=== PATIENT | female | born 1940 | race Caucasian/White ===

== ENCOUNTER → 2021-08-03 10:57 | Outpatient (CLI) | payer MEDICARE, SELFPAY ==
--- NOTE | ~2021-08-03 | DEXA_ITS ---
Bone Density Report Name: Mary Hernandez Age: 81 Sex: Female Ethnicity: White Date of : 1940 Indication: hyperparathyroidism; height loss; hysterectomy; Referring Provider: BENSON RICHARDSON Study: Bone densitometry was performed. Exam Date: August 03, 2021 Accession number: [id number] Bone Density: Region BMD T-score Z-score Classification AP Spine (L1-L4) 1.081 0.3 3.1 Normal Femoral Neck (Left) 0.688 -1.5 1.0 Osteopenia Total Hip (Left) 0.944 0.0 2.2 Normal Femoral Neck (Right) 0.694 -1.4 1.0 Osteopenia Total Hip (Right) 0.918 -0.2 2.0 Normal Total Hip Mean 0.931 -0.1 2.1 Normal World Health Organization criteria for BMD impression classify patients as: Normal (T-score at or above -1.0), Osteopenia (T-score between -1.0 and -2.5), or Osteoporosis (T-score at or below -2.5). 10-year Fracture Risk: FRAX not reported because: Treated for osteoporosis Clinical Information Provided by Patient: Is being treated for osteoporosis Has used the following medications: HRT (i.e. estrogen/hormone therapy), Vitamin D Has the following medical conditions: Hyperparathyroidism, Hysterectomy Patient maximum height was 63 Menopause Age: 35 Drinks caffeinated beverages Onset of menses at age 11 Number of children 3 Impression: The patient has low bone mass, based on the Left Femoral Neck T-score. Discussion: It is important to ask patients whether they are taking their medications and to encourage continued and appropriate compliance with their osteoporosis therapies to reduce fracture risk. It is also important to review their risk factors and encourage appropriate calcium and vitamin D intakes, exercise, fall prevention and other lifestyle measures. Follow-Up: Consider a repeat BMD and Vertebral Fracture Assessment (VFA) exam in 2 years or sooner if medically necessary, to reassess this patient's status. Reported by: [facility] on 08/03/2021 11:15:00 AM. Reviewed, dictated and finalized at location AYannick FRANK
== END ==
PROVIDERS: PCP Family Medicine; Visit Provider Family Medicine
DX: Z78.0 Asymptomatic menopausal state (principal); M85.88 Other specified disorders of bone density and structure, other site
CPT/HCPCS: 77080

== ENCOUNTER 2024-06-16 09:47 | Outpatient (CLI) | payer MEDICARE, SELFPAY ==
--- NOTE | ~2024-06-16 | XR_ITS ---
XR shoulder LT min 2V Ordering provider: Odilia Nuno PA-C History: . M25.512 - Pain in left shoulder . Comparison: None. FINDINGS: BONES: No acute fracture or dislocation. Osteophyte formation is seen JOINT SPACES: The acromioclavicular joint is normal. 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 SOFT TISSUES: Normal. IMPRESSION: No acute osseous abnormality left shoulder. Reviewed, dictated and finalized at location A.
--- NOTE | ~2024-06-16 | XR_ITS ---
XR ribs LT 2V w CXR 2V Ordering provider: Odilia Nuno PA-C History: . R07.81 - Pleurodynia . Comparison: None. FINDINGS: BONES: No acute rib fracture. MEDIASTINUM: The cardiac silhouette is not enlarged. LUNGS: No infiltrates, effusions or pneumothorax. OTHER: No free air under the diaphragm. S-shaped scoliosis with degenerative changes. IMPRESSION: 1. No acute osseous abnormality left ribs and chest. 2. No acute cardiopulmonary findings. Reviewed, dictated and finalized at location A.
== END 2024-06-16 09:48 ==
LOC: MICIMG 09:50
PROVIDERS: PCP Family Medicine; Visit Provider Physician Assistant Medical
DX: M25.512 Pain in left shoulder (principal); R07.81 Pleurodynia
CPT/HCPCS: 71046; 71100; 73030